=== PATIENT | female | born 1995 | race Caucasian/White ===

== ENCOUNTER 2021-07-28 17:37 | Emergency (ER) | payer OTHER, SELFPAY ==
--- NOTE | ~2021-07-28 | US_ITS ---
EXAMINATION: US OB transvaginal INDICATION: vaginal spotting, 5 weeks preg TECHNIQUE: Sonography of the pelvis was performed by transvaginal techniques. COMPARISON: None. RESULT: Uterus: - Orientation: Anteverted - Size: 7.4 x 4.7 x 3.3 cm - Myometrium: homogeneous echogenicity Gestation: - Intrauterine gestational sac: Not definitively seen. There is an elongated hypoechoic area i n the endometrium measuring 6.7 x 1.4 x 4.0 mm corresponding to a mean sac size of 0.4 cm, 5 weeks 1 day. At least 2 additional hypoechoic areas are present in the endometrium that could also represent candidates for early gestational sacs. No yolk sac or embryo detected. -Subgestational hematoma: Absent Right ovary: - Size : 3 x 3 x 1.6 cm - Normal sonographic appearance with physiologic follicles. Left ovary: - Size: 2.3 x 1.4 x 1.4 cm - Normal sonographic appearance with physiologic follicles. Pelvis free fluid: None. IMPRESSION: Positive test with no definite intrauterine gestational sac visualized (although several ca ndidates are present). Findings represent of unknown location. Differential diagnosis inc ludes early normal, failed early, or ectopic . Recommend follow-up serial beta-hCG values. Ultrasound follow-up should be considered as clinically warranted. Reviewed, dictated and finalized at location [facility]. IMPRESSION: Positive test with no definite intrauterine gestational sac visualize d (although several candidates are present). Findings represent of u nknown location. Differential diagnosis includes early normal, failed early, o r ectopic . Recommend follow-up serial beta-hCG values. Ultrasound f ollow-up should be considered as clinically warranted.
[2021-07-28 17:49] VITALS: BP 123/78; PULSE 97; RESP 18; TEMP 36.6; O2SAT 100
[2021-07-28 18:04] LABS: Appearance Urine Clear (Clear); Bilirubin Urine Negative (Negative); Blood Urine Negative (Negative); Color Urine Yellow (Yellow); Glucose Urine UA Negative (Negative); Ketones Urine Negative (Negative); Leukocyte Esterase Ur Negative LEU/UL (Negative); Nitrate Urine Negative (Negative); Protein Urine Negative (Negative); Urobilinogen Urine 0.2 mg/dL (<2.0)
[2021-07-28 18:05] LABS: Add Urine Microscopic? NO
[2021-07-28 19:50] LABS: Basophils Absolute Auto 0.1 K/mm3 (0.0-0.1); Basophils Percent Auto 0.7 % (0.2-1.2); Eosinophils Absolute Auto 0.3 K/mm3 (0-0.3); Eosinophils Percent Auto 3.4 % (0-4.4); Hematocrit 42.7 % (37.0-47.0); Hemoglobin 13.7 g/dL (12.0-15.0); Immature Granulocyte Absolute 0.04 K/mm3 (0.00-0.031); Immature Granulocyte Percent A 0.5 % (0-0.5); Lymphocytes Absolute Auto 2.22 K/mm3 (0.9-3.2); Lymphocytes Percent Auto 27.3 % (18.3-44.2); Mean Corpuscular HGB Conc 32.1 g/dl (32-36); Mean Corpuscular Hemoglobin 29.2 pg (26-34); Mean Platelet Volume 10.2 fl (7.4-10.4); Monocytes Absolute Auto 0.8 K/mm3 (0.1-0.6); Monocytes Percent Auto 10.1 % (2.6-8.5); Neutrophils Absolute Auto 4.7 K/mm3 (1.3-6.7); Platelet Count Result 295 k/mm3 (150-375); Red Blood Count 4.69 M/mm3 (4.2-5.4); Red Cell Distribution Width 13.4 % (11.5-14.5); White Blood Count 8.1 K/mm3 (4.5-10.0)
--- NOTE | 2021-07-28 20:14 | ED.FEMALEGU ---
HPI - Female Genitourinary General Chief complaint: Vaginal Bleeding <Elva Alonzo PA-C - Last Filed: 07/29/21 02:31> Stated complaint: spotting- approx 5 weeks <Elva Alonzo PA-C - Last Filed: 07/29/21 02:31> Time Seen by Provider: 07/28/21 19:36 <VALENTINE Garcia Last Filed: 07/29/21 02:31> History of Present Illness HPI Narrative: Patient is a 26-year-old female who is approximately 5 weeks who presents for evaluation of vaginal spotting yesterday and today. Patient notes 2 episodes of one light pink spot in her underwear yesterday, and 2 episodes of brown discharge noted on the toilet tissue today. She denies any abdominal pain, nausea, vomiting, lightheadedness, syncope. Her previous ended in miscarriage. She has not established with an OB yet. <VALENTINE Garcia Last Filed: 07/29/21 02:31> Review of Systems Review of Systems: Gen: Denies fevers or chills Eyes: Denies eye pain or visual change ENT: Denies congestion Respiratory: Denies shortness of breath or cough CV: Denies chest pain or palpitations GI: Denies abdominal pain nausea, emesis or diarrhea reports vaginal bleeding. Denies burning, urgency, frequency or hematuria Musculoskeletal: Denies back pain or muscle pain Neuro: Denies numbness, tingling, weakness or focal weakness Skin: Denies rash Except as documented, all other systems reviewed and negative <VALENTINE Garcia Last Filed: 07/29/21 02:31> All systems reviewed & are unremarkable except as noted in HPI and below <VALENTINE Garcia Last Filed: 07/29/21 02:31> Exam Narrative: APPEARANCE: No acute distress, nontoxic, resting in bed EYES: EOMI HEENT: Normocephalic, atraumatic, OMM RESPIRATORY: No respiratory distress Clear to auscultation bilaterally with no rhonchi wheezing or rales. CARDIOVASCULAR: Regular rate and rhythm without murmurs rubs or gallops. ABDOMINAL: Soft, nontender, nondistended, no rebound or guarding MUSCULOSKELETAl: Moves all extremities. No clubbing, cyanosis or edema. : Performed with counter weigher [place]. No blood noted in vagina. [place] sign positive. Cervical os closed. NEURO: Awake and alert. Following commands, speech normal, no focal deficits SKIN: Warm, dry. No rashes lesions or abrasions PSYCHIATRIC: Normal affect/mood <Elva Alonzo PA-C - Last Filed: 07/29/21 02:31> Course Consultations Consultation #1: Spoke with Dr. Cervantes, WATER MANAGER about ultrasound findings. Given lack of abdominal pain, recommended repeat hcg monday and close repeat US. Will provide number of clinic. <Elva Alonzo PA-C - Last Filed: 07/29/21 02:31> Date: 07/28/21 <Elva Alonzo PA-C - Last Filed: 07/29/21 02:31> Time: 22:00 <Elva Alonzo PA-C - Last Filed: 07/29/21 02:31> Vital Signs Vital signs: Vital Signs Temperature 36.6 C 07/28/21 17:49 Pulse Rate 97 07/28/21 17:49 Respiratory Rate 18 07/28/21 17:49 Blood Pressure 123/78 07/28/21 17:49 Pulse Oximetry 100 07/28/21 17:49 Temperature 36.3 C L 07/28/21 23:29 Pulse Rate 70 07/28/21 23:29 Respiratory Rate 16 07/28/21 23:29 Blood Pressure 118/68 07/28/21 23:29 Pulse Oximetry 99 07/28/21 23:29 <Elva Alonzo PA-C - Last Filed: 07/29/21 02:31> MDM - Female Genitourinary MDM Narrative Medical decision making narrative: 26-year-old female who is ~5 weeks here for evaluation of vaginal spotting today and yesterday. VSS; cervical os closed, quant [id number], no need for rhogam as patient is A+. US without visualization of IUP. Spoke with Dr. Cervantes, WATER MANAGER, who recommended close follow up as outpatient for serial quants. Feel ectopic is unlikely given lack of unilateral abdominal pain or tenderness, but did discuss return precautions with patient, she voiced understanding. <Elva Alonzo PA-C - [place]
[2021-07-28 23:29] VITALS: BP 118/68; PULSE 70; RESP 16; TEMP 36.3; O2SAT 99
== END 2021-07-28 23:30 | disposition home or self-care (01) ==
PROVIDERS: Emergency Medicine; Family Medicine; Emergency Provider Emergency Medicine; PCP Family Medicine
DX: O20.0 Threatened abortion (principal); Z3A.01 Less than 8 weeks gestation of pregnancy
CPT/HCPCS: 36415; 76817; 81003; 81025; 84702; 85025; 85461; 99284